=== PATIENT | female | born 1990 | race Caucasian/White ===

== ENCOUNTER 2016-12-02 17:12 | Emergency (ER) | payer OTHER ==
[2016-12-02] MEDS ORDERED: AZITHROMYCIN 250 MG TABLET ONE (18:17)
[2016-12-02] MEDS ORDERED: CEFTRIAXONE SODIUM 250 MG VIAL ONE (18:17)
[2016-12-02] MEDS ORDERED: ONDANSETRON 4 MG ODT TAB ONE (18:17)
[2016-12-02] MEDS ORDERED: HYDROCODONE/ACETAMINOPHEN 5/325MG TABLET ONE (18:36)
[2016-12-03 14:29] LABS: CHLAMYDIA BD Negative (Negative); N.GONORRHOEAE BD Negative (Negative); SOURCE Urine (())
== END 2016-12-02 19:02 | disposition home or self-care (01) ==
LOC: ED 17:12
DX: R10.2 Pelvic and perineal pain (principal); J45.909 Unspecified asthma, uncomplicated; Z97.5 Presence of (intrauterine) contraceptive device; Z87.442 Personal history of urinary calculi
CPT/HCPCS: 87491; 87591; 99283 ×2; J0696; A9270 ×3